=== PATIENT | female | born 1965 | race African-American/Black ===

== ENCOUNTER 2017-11-20 09:07 | Emergency (ER) | payer MEDICAID, MEDICARE ==
[~2017-11-20] VITALS: Ht 170.2 cm; Wt 109.0 kg
[~2017-11-20 09:07] MED LIST: ATEN-42; HYDR-523 PO; omeprazole
[2017-11-20] MEDS ORDERED: KETOROLAC 60MG/2ML VIAL IM ONE (12:30)
[2017-11-20] MEDS ORDERED: DEXAMETHASONE 4MG/ML 1ML VIAL IM ONE (12:30)
[2017-11-20 12:41] VITALS: BP 141/86
== END 2017-11-20 12:57 | disposition home or self-care (01) ==
LOC: ER 10:05
DX: M54.41 Lumbago with sciatica, right side (principal); I49.9 Cardiac arrhythmia, unspecified
CPT/HCPCS: 96372; 99284; J1100; J1885

== ENCOUNTER 2018-03-01 09:53 | Emergency (ER) | payer MEDICARE ==
[~2018-03-01] VITALS: Ht 170.2 cm; Wt 120.0 kg
[2018-03-01 10:01] VITALS: BP 138/80
== END 2018-03-01 14:09 | disposition home or self-care (01) ==
LOC: ER 11:10
DX: S86.119A Strain of other muscle(s) and tendon(s) of posterior muscle group at lower leg level, unspecified leg, initial encounter (principal); I10 Essential (primary) hypertension; X58.XXXA Exposure to other specified factors, initial encounter; Y93.89 Activity, other specified; Y92.89 Other specified places as the place of occurrence of the external cause; Y99.8 Other external cause status
CPT/HCPCS: 93971; 99284